=== PATIENT | male | born 1950 ===

== ENCOUNTER 2019-03-11 10:15 | Emergency (ER) | payer OTHER ==
[~2019-03-11] VITALS: Ht 170.2 cm; Wt 106.6 kg
[~2019-03-11 10:15] MED LIST: ALLO300; CLOP75; GLIM2; METF500; PANT40; PRAVASTATIN SOD10 MG
[2019-03-11 11:19] LABS: BASOPHILS ABSOLUTE AUTO 0.05 K/mm3 (0.00-0.23); BASOPHILS PERCENT AUTO 1 % (0-2); EOSINOPHILS ABSOLUTE AUTO 0.27 K/mm3 (0.00-0.68); EOSINOPHILS PERCENT AUTO 3 % (0-6); Hematocrit 45.6 % (37.0-53.0); Hemoglobin 15.5 g/dL (13.5-17.5); IMMATURE GRAN ABSOLUTE AUTO 0.09 K/mm3 (0.00-0.10); IMMATURE GRAN PERCENT AUTO 1 % (0-1); LYMPHOCYTES ABSOLUTE AUTO 1.93 K/mm3 (0.84-5.20); LYMPHOCYTES PERCENT AUTO 21 % (21-46); MONOCYTES ABSOLUTE AUTO 0.58 K/mm3 (0.16-1.47); MONOCYTES PERCENT AUTO 6 % (4-13); Mean Corpuscular HGB 31.8 pg (26.0-34.0); Mean Corpuscular Volume 93 fL (80-100); Mean Platelet Volume 10.6 fL (9.1-12.4); NEUTROPHILS ABSOLUTE AUTO 6.11 K/mm3 (1.96-9.15); NEUTROPHILS PERCENT AUTO 68 % (41-73); Platelet Count 226 K/mm3 (150-400); RDW Coefficient Variation 13.6 % (11.7-14.2); RDW Standard Deviation 46.7 fL (35.1-46.3); Red Blood Cell Count 4.88 M/mm3 (4.30-5.90); White Blood Cell Count 9.03 K/mm3 (4.00-11.30)
[2019-03-11 11:43] LABS: Alanine Aminotransfer (ALT/SGP 140 U/L (12-78); Albumin, Blood 4.2 g/dL (3.4-5.0); Albumin/Globulin Ratio 1.2 (0.8-1.8); Alk Phos 88 U/L (50-136); Anion Gap 9 mmol/L (6-16); Aspartate Aminotrans (AST/SGOT 54 U/L (12-37); Bilirubin, Total 0.8 mg/dL (0.1-1.0); Blood Urea Nitrogen 15 mg/dL (8-24); Bun/Creatinine Ratio 14.4 (12.0-20.0); CO2, Blood 24 mmol/L (21-32); Calcium, Blood 9.7 mg/dL (8.5-10.1); Chloride, Blood 102 mmol/L (98-108); Creatinine, Blood 1.04 mg/dL (0.60-1.20); Globulin, Blood 3.6 g/dL (2.2-4.0); Glomerular Filtration Rate >60 (60-); Glucose, Blood 321 mg/dL (70-99); Potassium, Blood 3.9 mmol/L (3.5-5.5); Sodium, Blood 135 mmol/L (136-145); Total Protein, Blood 7.8 g/dL (6.4-8.2); Troponin I 0.101 ng/mL (0.000-0.040)
== END 2019-03-11 11:36 | disposition left against medical advice (07) ==
LOC: ER 10:15
PROVIDERS: Emergency Medicine
DX: Z53.21 Procedure and treatment not carried out due to patient leaving prior to being seen by health care provider (principal)
CPT/HCPCS: 36415; 80053; 83880; 84484; 85025; 93005; 93010; 99284-25

== ENCOUNTER 2022-04-04 06:30 | Day surgery (SDC) | payer OTHER ==
[~2022-04-04] VITALS: Ht 170.2 cm; Wt 100.0 kg
[~2022-04-04 06:30] MED LIST changes: -ALLO300; +ALLO300 PO; +AMLO5 PO; -CLOP75; +CLOP75 PO; +JARDIANCE25 MG PO; +LOSA25; +LOSARTAN POTAS100 M1 PO; -METF500; +METF500 PO; -PANT40; +PANT40 PO; +ROSU10TA PO
--- NOTE | 2022-04-04 09:15 | NUR ---
PATIENT RETURNED FROM THE AUTOMATION/CONTROLS MANAGER VIA RECLINER, MONITOR APPLIED, SBAR RECEIVED FROM ROMERO [place] AND JANUARY RT. TR BAND IN PLACE WITH 14 ML OF AIR IN THE BAND TO THE RIGHT RADIAL. WHITE BOARD IN PLACE TO RESTRICT MOVEMENT. SQL SERVER BI DEVELOPER APPLIED. [facility] LANDRY SPENT 20 MINUTES AT [facility] BEDSIDE SPEAKING WITH THE PAITENT AND FAMILY REGARDING THE NEED FOR CABG. REFERRAL PLACED TO DR. RICH IN [place]. AND DAUGHTER AT THE BEDSIDE.
--- NOTE | 2022-04-04 09:49 | NUR ---
BEGAN TAKING AIR FROM THE TR BAND, RIGHT RADIAL ARTERY.
--- NOTE | 2022-04-04 10:44 | NUR ---
PATIENT IS OFF THE MONITOR AND UP TO THE RESTROOM. VOIDED. TR BAND IS FLAT AND WHITE BOARD ON TO AVOID BENDING. BACK ON THE MONITOR WHEN BACK TO THE RECLINER. CALL [facility] IN THE REACH.
--- NOTE | 2022-04-04 11:09 | NUR ---
REMOVED TR BAND AND SITE CLEANED. CLOTH DOT PLACED. SITE IS CDI, NO HEMATOMA, NO BLEEDING. REVIEWED SITE CARE AND DISCAHRGE INSTRUCTIONS. AT [facility] BEDSIDE AND READ OVER DISCHARGE INSTRUCTIONS WITH THE PATIENT. ALL QUESTIONS ANSWERED. VVS. DR. BURKS HAS NOT HEARD BACK FROM DR. XIONG YET.
--- NOTE | 2022-04-04 11:11 | NUR ---
PATIENT HEART RATE IS DROPPING INTO THE LOW 40'S/38.
--- NOTE | 2022-04-04 11:28 | NUR ---
PIV REMOVED. EKG ORDERED FOR BRADYCARDIA PER DR. LANDRY.
--- NOTE | 2022-04-04 11:56 | NUR ---
DR. LANDRY AT THE BEDSIDE, SPOKE TO THE PATIENT AND , WAS IN TOUCH WITH DR. XIONG AND HIS OFFICE WILL CONTACT THE PATIENT THIS WEEK. SHE REVIEWED THE EKG. SPOKE WITH THE PATIENT ABOUT ANY DIZZINESS OR SLEEP APNEA. PATIENT DENIES EITHER. PIV REMOVED. PRESSURE DRESSING APPLIED. PATIENT DRESSED AND ALL BELONGINGS GATHERED. PATIENT DISCHARGE VIA WHEELCHAIR HOME WITH .
== END 2022-04-04 12:00 | disposition home or self-care (01) ==
LOC: MHTC 06:30
DX: I25.10 Atherosclerotic heart disease of native coronary artery without angina pectoris (principal); I12.9 Hypertensive chronic kidney disease with stage 1 through stage 4 chronic kidney disease, or unspecified chronic kidney disease; N18.9 Chronic kidney disease, unspecified; E11.22 Type 2 diabetes mellitus with diabetic chronic kidney disease; E78.5 Hyperlipidemia, unspecified; Z79.899 Other long term (current) drug therapy
CPT/HCPCS: 76937; 93005; 93010; 93454; 99152; 99153; C1769; C1887; C1894; J1644; J2250; J3010; J7030; J7040; Q9967

== ENCOUNTER → 2022-08-11 | Outpatient (CLI) | payer OTHER | END | disposition home or self-care (01) | LOC: LAB SHORT 12:38 → PLD 12:38 | DX: C44.519 Basal cell carcinoma of skin of other part of trunk (principal) | CPT/HCPCS: 88305 ==

== ENCOUNTER → 2024-02-20 | Outpatient (CLI) | payer OTHER ==
[~2024-02-20] MED LIST changes: +Acerola C500 MG PO; +CILOSTAZOL50 M1 PO
== END ==
LOC: LAB SHORT 14:36 → PLD 14:36
DX: D04.62 Carcinoma in situ of skin of left upper limb, including shoulder (principal)
CPT/HCPCS: 88305

== ENCOUNTER 2024-04-23 07:44 | Day surgery (SDC) | payer OTHER ==
[~2024-04-23] VITALS: Ht 170.2 cm; Wt 102.5 kg
[2024-04-23] VITALS (9 sets, daily range): BP systolic 140–175; BP diastolic 66–89
[~2024-04-23 07:44] MED LIST changes: +GABA100 PO; +MAGNESIUM OXID500 MG PO; +MULVITA PO; +SEMGLEE (Y100 UNIT/2; +TYLENOL PM PO
[2024-04-23] MEDS ORDERED: INSULANPEN SC (08:16)
[2024-04-23] MEDS ORDERED: NS 250 ML IV ONE (10:25)
[2024-04-23] MEDS ORDERED: Heparin Sodium 1000 Units/ML 10ML MDV ONE ×2 (10:25→10:44)
[2024-04-23] MEDS ORDERED: NS 1,000 ML IV ONE ×2 (10:25→10:29)
[2024-04-23] MEDS ORDERED: Midazolam HCl 1MG / ML 2ML Vial ONE ×2 (10:29→10:44)
[2024-04-23] MEDS ORDERED: FentaNYL Citrate 50 MCG/ML 2 ML Injection ONE (10:29)
[2024-04-23] MEDS ORDERED: NS 0 ML IV ONE (13:05)
== END 2024-04-23 22:42 | disposition home or self-care (01) ==
LOC: MHTC 07:44
DX: E11.51 Type 2 diabetes mellitus with diabetic peripheral angiopathy without gangrene (principal); I70.223 Atherosclerosis of native arteries of extremities with rest pain, bilateral legs; I25.10 Atherosclerotic heart disease of native coronary artery without angina pectoris; I10 Essential (primary) hypertension; E78.5 Hyperlipidemia, unspecified; K21.9 Gastro-esophageal reflux disease without esophagitis; Z87.891 Personal history of nicotine dependence; Z88.8 Allergy status to other drugs, medicaments and biological substances; Z79.899 Other long term (current) drug therapy; Z95.1 Presence of aortocoronary bypass graft
CPT/HCPCS: 76937; 99152; 99153; C1725; C1760; C1769; C1874; C1887; C1894; J1644; J2250; J3010; J7030; J7050; Q9967